=== PATIENT | male | born 1970 | race Caucasian/White ===

== ENCOUNTER 2018-06-01 10:12 | Emergency (ER) | payer BC ==
[~2018-06-01] VITALS: Ht 180.3 cm; Wt 93.0 kg
[~2018-06-01 10:12] MED LIST: SIMV20TA6 PO
[2018-06-01 10:24] VITALS: BP_SYST 148
[2018-06-01] MEDS ORDERED: ONDANSETRON 4 MG ODT TAB PO ONE (10:30)
[2018-06-01 10:53] LABS: BILIRUBIN,URINE NEGATIVE (NEGATIVE); BLOOD, URINE NEGATIVE (NEGATIVE); CLARITY/URINE CLEAR (CLEAR); COLOR,URINE YELLOW (YELLOW); GLUCOSE,URINE NEGATIVE (NEGATIVE); KETONES,URINE NEGATIVE (NEGATIVE); LEUKOCYTE ESTERASE ,URINE NEGATIVE (NEGATIVE); NITRITE, URINE NEGATIVE (NEGATIVE); PROTEIN URINE TRACE (NEGATIVE); UROBILINOGEN,URINE 0.2 (0.2-1.0)
[2018-06-01 11:11] LABS: BACTERIA,URINE FEW /HPF (None Seen); MUCUS,URINE 1+ /LPF (None Seen); RBC,URINE 0-3 /HPF (0-3); WBC,URINE 0-3 /HPF (0-3)
[2018-06-01 11:14] VITALS: BP_SYST 141
== END 2018-06-01 11:14 | disposition home or self-care (01) ==
LOC: SED 10:12
DX: H81.10 Benign paroxysmal vertigo, unspecified ear (principal); R03.0 Elevated blood-pressure reading, without diagnosis of hypertension; Z87.442 Personal history of urinary calculi
CPT/HCPCS: 81000; 99283; Q0162

== ENCOUNTER 2019-02-28 10:34 | Emergency (ER) | payer BC ==
[~2019-02-28] VITALS: Ht 180.3 cm; Wt 93.0 kg
[2019-02-28 10:35] VITALS: BP_SYST 134
[2019-02-28 11:26] LABS: BILIRUBIN,URINE NEGATIVE (NEGATIVE); BLOOD, URINE 2+ (NEGATIVE); CLARITY/URINE CLEAR (CLEAR); COLOR,URINE YELLOW (YELLOW); GLUCOSE,URINE NEGATIVE (NEGATIVE); KETONES,URINE NEGATIVE (NEGATIVE); LEUKOCYTE ESTERASE ,URINE NEGATIVE (NEGATIVE); NITRITE, URINE NEGATIVE (NEGATIVE); PROTEIN URINE NEGATIVE (NEGATIVE); UROBILINOGEN,URINE 0.2 (0.2-1.0)
[2019-02-28 11:33] LABS: BACTERIA,URINE RARE /HPF (None Seen); WBC,URINE 0-3 /HPF (0-3)
[2019-02-28 11:34] LABS: MUCUS,URINE 1+ /LPF (None Seen)
[2019-02-28 13:15] VITALS: BP_SYST 130
== END 2019-02-28 13:13 | disposition home or self-care (01) ==
LOC: SED 10:34
DX: N20.0 Calculus of kidney (principal); R31.9 Hematuria, unspecified; K59.00 Constipation, unspecified; R03.0 Elevated blood-pressure reading, without diagnosis of hypertension
CPT/HCPCS: 81000-TC; 99284